=== PATIENT | female | born 1990 | race American Indian/Alaskan Native ===

== ENCOUNTER 2018-10-27 01:42 | Emergency (ER) | payer SELFPAY ==
[2018-10-27 01:43] VITALS: BMI 18.8
--- NOTE | 2018-10-27 02:46 | C.PDOC ---
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 Patient presents to the ED with her son who is sick with similar complaints. Patient reports her LMP was last month. Patient denies fever, diarrhea, abdominal pain, rash, recent travel, dysuria, abck pain. Time Seen by Provider: 10/27/18 02:02 Chief Complaint (Nursing): GI Problem History Per: Patient History/Exam Limitations: no limitations Onset/Duration Of Symptoms: Hrs Current Symptoms Are (Timing): Still Present Location Of Pain: Diffuse Myalgias Sick Contacts (Context): Family Member(s) Associated Symptoms: Myalgias, Nausea, Vomiting Ear Symptoms: Bilateral: None Recent travel outside of the [place]: No Additional History Per: Patient Past Medical History Reviewed: Historical Data, Nursing Documentation, Vital Signs Vital Signs: Last Vital Signs Temp 98.6 F 10/27/18 01:57 Pulse 95 H 10/27/18 01:57 Resp 17 10/27/18 01:57 BP 132/77 10/27/18 01:57 Pulse Ox 100 10/27/18 01:57 - Medical History PMH: Anemia Surgical History: No Surg Hx - [facility] Procedures DELIVERY OF PRODUCTS OF CONCEPTION, EXTERNAL APPROACH (07/18/16) Family History: States: Unknown Family Hx - Social History Hx Tobacco Use: No Hx Alcohol Use: No Hx Substance Use: No - Immunization History Hx Tetanus Toxoid Vaccination: No Hx Influenza Vaccination: Yes Hx Pneumococcal Vaccination: No Review Of Systems Constitutional: Positive for: Chills, Malaise. Negative for: Fever ENT: Negative for: Nose Discharge, Nose Congestion, Throat Pain Respiratory: Negative for: Cough, Shortness of Breath Gastrointestinal: Positive for: Vomiting, Diarrhea Genitourinary: Negative for: Dysuria Musculoskeletal: Negative for: Back Pain Skin: Negative for: Rash Neurological: Negative for: Weakness, Numbness Physical Exam - Physical Exam Appears: Non-toxic, No Acute Distress Skin: Normal Color, Warm, Dry Head: Atraumatic, Normacephalic Eye(s): bilateral: Normal Inspection Ear(s): Bilateral: Normal Oral Mucosa: Moist Throat: Normal, No Erythema, No Exudate Neck: Normal ROM, Supple Chest: Symmetrical Cardiovascular: Rhythm Regular Respiratory: Normal Breath Sounds, No Rales, No Rhonchi, No Wheezing Gastrointestinal/Abdominal: Soft, No Tenderness, No Guarding, No Rebound Extremity: Normal ROM, No Tenderness, No Swelling Neurological/Psych: Oriented x3, Normal Speech, Normal Cognition Gait: Steady ED Course And Treatment O2 Sat by Pulse Oximetry: 100 (ON RA) Pulse Ox Interpretation: Normal Progress Note: Plan: - Zofran 4 mg PO. Patient tolerated PO in the ED, no longer vomiting. Patient was advisd to increase fluid intake and to follow up with PMD. Disposition Counseled Patient/Family Regarding: Diagnosis, Need For Followup, Rx Given - Disposition Referrals: [facility] [Outside] Disposition: HOME/ ROUTINE Disposition Time: 03:32 Condition: STABLE Additional Instructions: Please increase fluids Get some rest Tylenol or advil for pain Use zofran if nauseous Return to ER if worse Prescriptions: Ondansetron ODT [Zofran ODT] 1 odt PO BID PRN #6 odt PRN Reason: Nausea/Vomiting Instructions: Viral Syndrome (DC) Forms: [employer] (Swedish) - Clinical Impression Clinical Impression: Viral illness - PA / DIETARY SERVER / Resident Statement MD/DO has reviewed & agrees with the documentation as recorded. - Scribe Statement The provider has reviewed the documentation as recorded by the Scribe Alex Manley All medical record entries made by the Scribe were at my direction and personally dictated by me. I have reviewed the chart and agree that the record accurately reflects my personal performance of the history, physical exam, medical decision making, and the department course for this patient. I have also personally directed, reviewed, and agree with the discharge instructions and disposition.
[2018-10-27 04:14] VITALS: BP 120/70; PULSE 80; RESP 14; TEMP 98
[2018-10-29 22:19] VITALS: O2SAT 100
== END 2018-10-27 04:14 | disposition home or self-care (01) ==
LOC: C.ER 01:42
DX: B34.9 Viral infection, unspecified (principal)